=== PATIENT | male | born 1990 ===

== ENCOUNTER 2021-06-19 08:02 | Emergency (ER) | payer OTHER ==
[~2021-06-19] VITALS: Ht 180.3 cm; Wt 74.8 kg
[2021-06-19] MEDS ORDERED: WELLBUTRIN XL300 MG PO (08:24)
[2021-06-19] MEDS ORDERED: ONDANSETRON ODT8 MG PO (09:39)
--- OUTSIDE RECORDS SUMMARY | 2021-06-19 11:18 | XMS ---
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 EDamian VISIT COUNT (12 MO.) 1 CRISTINA Neil TOTAL 1 NOTE: Visits indicate total known visits. ED/UCC VISIT TRACKING (12 MO.) 06/19/2021 08:03 CRISTINA [facility] OR TYPE: Emergency COMPLAINT: - VOMITING,DIARRHEA INPATIENT VISIT TRACKING (12 MO.) No inpatient visits to display in this time frame [id number]
[2021-06-19] MEDS ORDERED: REGLAN10 MG PO (16:11)
== END 2021-06-19 16:50 | disposition home or self-care (01) ==
LOC: ED 08:02
DX: K52.9 Noninfective gastroenteritis and colitis, unspecified (principal); Z79.899 Other long term (current) drug therapy
CPT/HCPCS: 36415; 74177; 80048; 80053; 81001; 83690; 85025; 96375; 96376; 99284-25; A9270; C9113; J1170; J1200; J1790; J2060; J2405; J7030; J7121; Q9967